=== PATIENT | female | born 1995 | race Caucasian/White ===

== ENCOUNTER 2017-01-09 08:32 | Emergency (ER) | payer BC ==
[~2017-01-09] VITALS: Ht 160 cm; Wt 63.6 kg
[2017-01-09 08:34] VITALS: BP 141/84; PULSE 86; TEMP 98.1
[2017-01-09] MEDS ORDERED: AMETHIA1 TAB (08:37)
[2017-01-09] MEDS ORDERED: FLEXERIL 1010 MG/TAB PO (09:56)
== END 2017-01-09 10:07 | disposition home or self-care (01) ==
LOC: COL.ER 08:32
DX: M62.838 Other muscle spasm (principal); Z98.890 Other specified postprocedural states
CPT/HCPCS: J1885; J3360